=== PATIENT | male | born 1970 | race Caucasian/White ===

== ENCOUNTER 2021-03-12 18:17 | Emergency (ER) | payer OTHER, SELFPAY ==
[2021-03-12] VITALS (24 sets, daily range): BP systolic 107–151; BP diastolic 67–104; PULSE 57–66; RESP 16; TEMP 36.5–36.8; O2SAT 94–99
--- NOTE | 2021-03-12 18:30 | DI.RAD_ITS ---
Exam(s) XR PORTABLE CHEST AP EXAM: XR PORTABLE CHEST AP CLINICAL HISTORY: SOB, CP TECHNIQUE: 2D digital imaging was performed of the chest. One image was obtained. An AP view was ob tained. COMPARISON: No exams were available for comparison FINDINGS: MEDIASTINUM: Normal. HEART: Normal. PULMONARY VASCULATURE: Normal. LUNGS: Clear. PLEURAL SPACE: No pleural effusion or pneumothorax. BONE:Within normal limits for the patient's age. OTHER FINDINGS:Normal. IMPRESSION: No acute pulmonary findings. DATA REPOSITORY: RADIATION DOSE DELIVERED:
--- NOTE | 2021-03-12 18:30 | RT.EKG_ITS ---
APPROVED REPORT Exam: Resting ECG Reason for Exam: PUI Patient Location: E HR:61 bpm ECG Measurements Heart Rate 61 AXIS DC 150 P 60 QRSd 99 QRS -17 QT 399 T 8 QTc 401 Conclusion Sinus rhythm...normal P axis, V-rate 60- 99 Probable left atrial enlargement...P >50mS, <-0.10mV V1 Consider anterior infarct...Q >30mS in V2-V5
--- NOTE | 2021-03-12 19:00 | ED.GENADUL_ITS ---
Discharge Plan Disposition Patient Disposition: HOME Condition: Stable Discharge Details Clinical Impression: Cough, Chest pain Primary Care Provider: Gracie Callahan ED Provider: Jerica Rainey Home Meds and New Rx's Prescriptions: Continued omeprazole 20 MG tablet,delayed release (DR/EC) 20 mg PO DAILY RF: 0 Discharge Instructions Instructions: Chest Pain (ED), Acute Cough (ED) Additional Instructions: Your Covid test is negative here today. Your imaging and labs are reassuring. I am concerned still that you may have COVID-19. Please return to the testing tent in the next 4 days for repeat testing. To set up appointment please call [phone]. Please continue to encourage hyrdation. Tylenol and/or Ibuprofen as needed for discomfort. Please follow up with primary care in one week for reevaluation. If you develop increased shortness of breath, difficulty breathing, chest pain, inability to stay hydrated or other new/worsening symptoms please seek care urgently once again. Please continue to quarantine. Referrals: Lucia Jarrell [ NON-[facility] STAFF PHYSICIAN] - Discharge Data Discharge Date/Time-TO BE ENTERED AT DEPARTURE: 03/12/21 22:58 Medical Decision Making Patient is a pleasant 51-year-old male presenting today with chief complaint of chest pain, shortness of breath, cough, loss of sense of taste. He states he began having rhinorrhea, congestion, body ache 2 days ago. States that he felt like he was improving this morning and attempted to go to work. States that he does have a very physically demanding job. Typically he reports he is able to exert himself without difficulty. However, he walked up a hill today and developed shortness of breath and substernal chest pain. Denies any personal or familial or personal cardiac history. Reports that he has had some fever/chills. Reports that he had loose bowel movements this morning. Denies a ny abdominal pain. No nausea or vomiting. No change in urinary habits. On exam He Appears Nontoxic. He Is Slightly Hypertensive. Vital Signs Otherwise Stable. Is Not Previously Respiratory Distress. Lungs Are Clear. Normal Cardiac Exam. No Lower Extremity Edema or Calf Tenderness. Abdomen Is Benign. Patient did have a rapid Covid test earlier today which was negative. However, his symptoms are quite consistent with Covid, will retest. I did consider ACS and will obtain ECG as well as troponin. Patient was fairly immobile all weekend. As I am concerned for COVID-19 and hypercoagulability, I do feel that D-dimer to evaluate further for PE would be appropriate. He is hemodynamically stable. No radiation of pain in her description suggest dissection, pneumothorax. EKG was obtained and reviewed by Dr. Coughlin. Patient is in a sinus rhythm with a rate of 61. Probable left atrial enlargement. He advises no acute changes to suggest ischemic etiology. CXR reviewed by radiologist: FINDINGS: Lungs: Unremarkable. No consolidation. Pleural spaces: Unremarkable. No pleural effusion. No pneumothorax. Heart/Mediastinum: Unremarkable. No cardiomegaly. Bones/joints: Unremarkable. IMPRESSION: No acute findings. Exam labs reviewed. No leukocytosis. Stable H&H. D-dimer within normal limits. CMP without significant abnormality. BUN slightly elevated but otherwise normal. Initial troponin is less than 0.05. His symptoms to have increased today complained of opponent. Again, patient's history is more concerning with infectious etiology particularly with the exertional component of his symptoms, I do feel that repeat troponin is appropriate. Repeat troponin remains less than 0.05. Patient's COVID-19 testing is negative. Patient I discussed disposition. His symptoms are so classic for COVID-19, particularly the loss of taste and smell, that I do feel that repeat testing a few days would be appropriate. I did encourage that he continue to quarantine. Encourage supportive care. I did advise follow-up with primary care for reevaluation in the next week. Return precautions were discussed. All the questions and concerns were addressed and he is agreement this plan. [facility] General Mode of arrival: ambulatory . Date/Time Provider Initiated Documentation: 03/12/21 18:23 . Limitations to Documentation: no limitations . Information obtained by: patient and RN notes reviewed . History of Present Illness 51 year old M presents to the emergency department with the chief complaint of chest pain, cough, SOB,loss of taste , described as moderate, with intensity rated at 4. Quality is described as burning, and is localized to the chest. Patient reports no radiation. Patient started experiencing this hour(s) and it has been intermittent and now resolved. Rest improves symptom(s), Movement worsens symptoms . Patient notes chest pain, cough, fever/chills and shortness of breath; denies nausea/vomiting and syncope. Patient did receive the following treatments prior to arrival, none Related Data Home Medications Medication Instructions Recorded Confirmed omeprazole 20 mg PO DAILY 12/14/16 12/14/16 Allergies Allergy/AdvReac Type Severity Reaction Status Date / Time onion Allergy Severe Anaphylaxsi Unverified 12/14/16 19:27 s gluten AdvReac Unknown Unverified 12/14/16 19:27 General Stated Complaint: RespSymp MARIPOSA: 3 Review of Systems Constitutional Constitutional: Reports as per HPI, Reports chills, Reports fever(s) and Denies headache(s) ENT Ears, Nose, Mouth, and Throat: Denies dizziness and Denies headache(s) Cardiovascular Cardiovascular: Reports as per HPI, Reports chest pain, Reports chest pain with activity, Denies leg edema, Reports dyspnea and Reports dyspnea on exertion Respiratory Respiratory: Reports as per HPI, Denies chest congestion, Reports cough, Denies hemoptysis, Reports pain with cough, Reports dyspnea, Reports dyspnea on exertion and Denies wheezing Gastrointestinal Gastrointestinal: Reports as per HPI, Denies abdominal pain, Reports loose stools (this AM, none later today), Denies nausea and Denies vomiting Genitourinary Genitourinary: Denies system reviewed and no additional complaints, except as documented (denies change in urinary habits) Musculoskeletal Musculoskeletal: Reports as per HPI and Denies back pain Integumentary/Breasts Skin/Breast: Reports as per HPI and Denies rash Neurologic Neurologic: Reports as per HPI, Denies dizziness and Denies headache(s) Allergic/Immunologic Allergic/Immunologic: Denies wheezing PFSH Social History Smoking/Tobacco Use Status: Never Smoking risk assessment performed?: Yes Alcohol Intake: never Drug use: Never Substance use type: does not use Do you feel safe at home: Yes Do you feel safe in your relationship?: Yes Exam Const General: cooperative, healthy appearing, comfortable, no acute distress and well developed Nutritional Appearance: average body habitus and well nourished Orientation: alert, awake and oriented x3 HENMT Head: normal to inspection Ears: hearing grossly normal bilaterally Mouth: moist mucous membranes Chest Chest: normal inspection of the chest, normal palpation of entire chest wall and no crepitus Resp Effort & Inspection: normal respiratory effort, able to speak in complete sentences and no respiratory distress Auscultation: clear to auscultation bilaterally, no rales, no rhonchi and no wheezes Cardio Rate: regular rate Rhythm: regular rhythm Heart Sounds: S1 normal and S2 normal GI Inspection: normal to inspection, no edema and non-distended Palpation: soft, no hepatosplenomegaly, not firm, no guarding, not rigid and nontender Auscultation: normal bowel sounds Skin General skin exam: no rashes or lesions noted Trauma: no lacerations or abrasions Neuro General: patient alert, patient awake and patient oriented x3 Cognition: normal cognition Speech: speech normal Gait: normal gait Extrem General: normal to inspection, capillary refill normal, no pedal edema, no calf tenderness, normal gait and other (2+ distal pulses) Psych Appearance: grossly normal and well kempt Mental Status: mental status grossly normal Speech and Movement: speech and movement normal Course Vital Signs Vital signs: Vital Signs Temperature 36.8 C 03/12/21 18:21 Pulse 66 03/12/21 18:21 Respiratory Rate 16 03/12/21 18:21 Blood Pressure 151/104 H 03/12/21 18:21 Pulse Oximetry 99 03/12/21 18:21 Temperature 36.8 C 03/12/21 18:21 Temperature Source Temporal Artery Scan 03/12/21 18:21 Pulse 66 03/12/21 18:21 Respiratory Rate 16 03/12/21 18:21 Blood Pressure 151/104 H 03/12/21 18:21 Blood Pressure Position Sitting 03/12/21 18:21 Pulse Oximetry 99 03/12/21 18:21 Oxygen Delivery Method Room Air 03/12/21 18:21 Oxygen Flow Rate 0 03/12/21 18:21 Pain Level 4 03/12/21 18:21
[2021-03-12 19:09] LABS: Abs Immature Grans 0.03 10^3/uL (0.0-0.06); Absolute Basophil Count 0.04 10^3/uL (0.0-0.2); Absolute Eosinophil Count 0.16 10^3/uL (0.0-0.7); Absolute Lymphocyte Count 1.56 10^3/uL (1.2-3.4); Absolute Neutrophil Count 4.37 10^3/uL (1.2-6.7); Basophils % 0.6; Eosinophils % 2.4; HCT 47.4 % (40.0-50.0); HGB 16.2 g/dL (13.5-17.5); Immature Grans % 0.5; Lymphocytes % 23.4; MCH 29.3 pg (27.0-33.0); MCHC 34.2 % (32.0-36.0); MCV 85.7 fL (80-95); MPV 10.7 fL (8.0-11.0); Monocytes % 7.5; Neutrophils % 65.6; Nucleated RBC 0 %; Platelet Count 191 10^3/uL (130-400); RBC 5.53 10^6/uL (4.36-5.78); RDW 11.9 % (11.8-14.1); RDW-SD 37.9 fL; WBC 6.66 10^3/uL (4.4-10.8)
[2021-03-12 19:26] LABS: ALT 28 U/L (16-63); AST 18 U/L (15-37); Albumin 3.8 g/dL (3.4-5.0); Alkaline Phosphatase 71 U/L (46-116); Anion Gap 6.5 mmol/L (3-11); BUN 25 mg/dL (7-18); Bilirubin, Total 0.3 mg/dL (0.2-1.0); CO2 29.5 mmol/L (21.0-32.0); CREATININE 1.1 mg/dL (0.70-1.30); Calcium 8.7 mg/dL (8.5-10.1); Chloride 108 mmol/L (98-107); Glucose 101 mg/dL (74-106); Potassium 3.9 mmol/L (3.5-5.1); Sodium 144 mmol/L (136-145); Total Protein 7.1 g/dL (6.4-8.2)
[2021-03-12 19:28] LABS: Troponin I < 0.05 ng/mL (<0.06)
[2021-03-12 19:36] LABS: Source Nasal/Nares
--- NOTE | 2021-03-12 19:49 | NUR.NOTE ---
Nursing Note: Patient reported 3 short sharp bursts of pain in his left chest lasting a few seconds. ER Provider was made aware.
--- NOTE | 2021-03-12 20:00 | DI.VRAD_ITS ---
PROCEDURE INFORMATION: Exam: XR Chest Exam date and time: 03/12/2021 6:34 PM Age: 51 years old Clinical indication: Shortness of breath; Patient HX: SOB, cp TECHNIQUE: Imaging protocol: XR of the chest. Views: 1 view. COMPARISON: CT RENAL COLIC WO CONTRAST 12/14/2016 7:49 PM FINDINGS: Lungs: Unremarkable. No consolidation. Pleural spaces: Unremarkable. No pleural effusion. No pneumothorax. Heart/Mediastinum: Unremarkable. No cardiomegaly. Bones/joints: Unremarkable. IMPRESSION: No acute findings. Dictated and Authenticated by: Kenan Porter MD. Ordering:SOUTH Pizano MD
[2021-03-12 20:14] LABS: D-Dimer 249 ng/mlFEU (<500)
[2021-03-12 20:37] LABS: COVID-19 PCR Negative (Negative)
--- NOTE | 2021-03-12 21:15 | RT.EKG_ITS ---
APPROVED REPORT Exam: Resting ECG Reason for Exam: chest pain Patient Location: E HR:63 bpm ECG Measurements Heart Rate 63 AXIS TN 149 P 55 QRSd 98 QRS -7 QT 400 T 5 QTc 405 Conclusion Sinus rhythm...normal P axis, V-rate 60- 99 Atrial premature complexes in couplets...pair SV complexes w/ short R-R Probable left atrial enlargement...P >50mS, <-0.10mV V1
[2021-03-12 22:22] LABS: Troponin I < 0.05 ng/mL (<0.06)
--- NOTE | 2021-03-15 12:10 | NUR.NOTE ---
negative covid result left on message machine.Nursing Note:
== END 2021-03-12 22:58 | disposition home or self-care (01) ==
PROVIDERS: Emergency Provider Physician Assistant; PCP Nurse Practitioner
DX: R05.1 Acute cough (principal); R07.9 Chest pain, unspecified; R06.02 Shortness of breath
CPT/HCPCS: 80053; 87635; 93005; 99284; 71045; 84484; 85025; 85379; 93010; 99283

== ENCOUNTER 2022-06-11 11:20 | Emergency (ER) | payer OTHER, SELFPAY ==
--- NOTE | 2022-06-11 11:15 | RT.EKG_ITS ---
APPROVED REPORT Exam: Resting ECG Reason for Exam: sob Patient Location: E HR:67 bpm ECG Measurements Heart Rate 67 AXIS NE 140 P 72 QRSd 96 QRS -6 QT 377 T 0 QTc 400 Conclusion Sinus rhythm...normal P axis, V-rate 60- 99 Physician: no stemi, inverted t wave in III, unchanged
[2022-06-11 11:25] VITALS: BP 155/88; PULSE 72; RESP 18; TEMP 36.8; O2SAT 97
[2022-06-11 11:26] VITALS: BP 155/88; PULSE 72
--- NOTE | 2022-06-11 11:30 | DI.RAD_ITS ---
Exam(s) XR CHEST 2V PA LATERAL EXAM: XR CHEST 2V PA LATERAL CLINICAL HISTORY: cough, 18 days, r/o pneumonia. TECHNIQUE: 2D digital imaging was performed. COMPARISON: CR,XR XR PORTABLE CHEST AP from 03/12/2021 FINDINGS: 2 views: Heart size is normal. The mediastinum is not widened. Lungs are clear. No infiltrates nor pleural effusions. IMPRESSION: No acute pulmonary findings. DATA REPOSITORY: RADIATION DOSE DELIVERED:
--- NOTE | 2022-06-11 11:30 | DI.RAD_ITS ---
Exam(s) XR THORACIC SPINE COMPLETE EXAM: XR THORACIC SPINE COMPLETE CLINICAL HISTORY: cough, 18 days, thoracic spine pain. TECHNIQUE: 2D digital imaging was performed. COMPARISON: No exams were available for comparison FINDINGS: 3 views No evidence of fracture or listhesis. No significant scoliosis. No disc space narrowing. No wideni ng of the paraspinal lines. No osseous lesions evident in the thoracic vertebral bodies. Incidentally noted is chronic disc space narrowing at C5-6 level IMPRESSION: No significant radiograph findings in the thoracic vertebral bodies. Chronic disc space narrowing incidentally noted at C5-6 level. DATA REPOSITORY: RADIATION DOSE DELIVERED:
--- NOTE | 2022-06-11 11:42 | ED.GENADUL_ITS ---
Discharge Plan Disposition Patient Disposition: Home Condition: Good Discharge Details Clinical Impression: Cough, Back pain Primary Care Provider: Lucia Jarrell ED Provider: Dominick Aguillon Home Meds and New Rx's Prescriptions: New benzonatate 100 mg capsule 100 mg PO TID Qty: 30 0RF No Action omeprazole 20 MG tablet,delayed release (DR/EC) 20 mg PO DAILY Discharge Instructions Instructions: Chronic Cough (ED) Additional Instructions: At this time your chest x-ray shows no evidence of pneumonia, pneumothorax, and the x-rays of your spine showed no evidence of significant fracture or other abnormality. I suspect that there is a chronic irritation from the previous illness that you had that is causing the persistent cough. Please take the steroid inhaler as directed. 2 puffs every 12 hours. Take the Tessalon Perles as directed. These have been sent to your pharmacy on file. If you notice any worsening of your symptoms, or any new symptoms such as vomiting, diarrhea, fever, chills, shortness of breath, chest pain, numbness, weakness, or fainting , please return immediately to the emergency department for reevaluation. Please follow up with your primary care provider as soon as possible for reassessment and reevaluation. As always, it was a pleasure participating in your medical care today. Referrals: Lucia Jarrell [Primary Care Provider] - Medical Decision Making 52-year-old male with a past medical history of reflux, presents today for evaluation for cough and neck and back pain. Patient states that about 18 days ago he developed a cough, congestion, and constitutional symptoms of weakness fatigue fever and chills. That gradually improved over the next week or so, however his cough has persisted. He still admits to mild shortness of breath and some chest heaviness. However additionally he has also developed notable back pain that extends up to his neck at around C7. It is worsened every time he coughs. He was concerned about potential meningitis. He presents today for further evaluation. He denies any current fever. He denies any hemoptysis, vomiting or diarrhea. He states that he has no significant headache at this time. Is neck/back pain is worsened whenever he does cough. It is otherwise improved by nothing. No other complaints at this time. No other modifying factors. He denies any trauma or falls. Physicial exam demonstrates well-appearing male, notably clear lung sounds, stable vital signs. No nuchal rigidity or neck pain whatsoever. Neck pain appears to start at around C7, and then extends down to about T8 or 9. Suspect musculoskeletal component secondary to the coughing. However pneumonia and osseous abnormality is certainly on the differential. Meningitis appears clinically inconsistent with symptomatology. PE is of concern with his prolonged illness, cardiac etiology as well but less likely. Will evaluate for these etiologies, give Tessalon Perle, breathing treatment, monitor closely and reassess 3 PM X-ray results negative for acute process, laboratory work-up shows no white count, bandemia, left shift, elevated dimer, electrolyte abnormality, elevated troponin, elevated proBNP, elevated CRP, or elevated ESR. All testing is normal. COVID/flu/RSV are all negative. After Tessalon Perles patient is feeling improved for the severity of his cough. Chest x-ray and spine x-ray shows some chronic disc base narrowing at C5-C6, no evidence of pneumonia, pneumothorax, or other acute process otherwise. Patient feels well. Patient stable for discharge. We will give Symbicort inhaler for the steroid effect. Will give Tessalon Perles for home use. Suspect a component of persistent airway irritation or reactive airway disease. Symptoms appear clinically inconsistent with pulmonary embolism, dissection, or meningitis. I suspect that the neck/back achiness is musculoskeletal secondary to the coughing component. Patient stable for discharge. Will recommend close follow-up with PCP. He does have an appointment in the next 2 weeks for follow-up already. I have extensively reviewed the treatment plan and discharge instructions with the patient. I have addressed all patient concerns at this time. The patient was made aware of what symptoms to monitor for that would warrant a return to the emergency department. Discussed the plan with the patient, they demonstrate verbal understanding and agreement with our assessment and plan at this time. The documentation in this chart was dictated using [employer] dictation software. Please excuse any dictation errors. FINDINGS: 2 views: Heart size is normal. The mediastinum is not widened. Lungs are clear. No infiltrates nor pleural effusions. IMPRESSION: No acute pulmonary findings. FINDINGS: 3 views No evidence of fracture or listhesis. No significant scoliosis. No disc space narrowing. No widening of the paraspinal lines. No osseous lesions evident in the thoracic vertebral bodies. Incidentally noted is chronic disc space narrowing at C5-6 level IMPRESSION: No significant radiograph findings in the thoracic vertebral bodies. Chronic disc space narrowing incidentally noted at C5-6 level. HPI General Date/Time Provider Initiated Documentation: 06/11/22 11:39 . HPI Narrative: 52-year-old male with a past medical history of reflux, presents today for evaluation for cough and neck and back pain. Patient states that about 18 days ago he developed a cough, congestion, and constitutional symptoms of weakness fatigue fever and chills. That gradually improved over the next week or so, however his cough has persisted. He still admits to mild shortness of breath and some chest heaviness. However additionally he has also developed notable back pain that extends up to his neck at around C7. It is worsened every time he coughs. He was concerned about potential meningitis. He presents today for further evaluation. He denies any current fever. He denies any hemoptysis, vomiting or diarrhea. He states that he has no significant headache at this time. Is neck/back pain is worsened whenever he does cough. It is otherwise improved by nothing. No other complaints at this time. No other modifying factors. He denies any trauma or falls. Related Data Home Medications Medication Instructions Recorded Confirmed omeprazole 20 mg tablet,delayed 20 mg PO DAILY 12/14/16 06/11/22 release benzonatate 100 mg capsule 100 mg PO TID #30 caps 06/11/22 Previous Rx's Medication Instructions Recorded benzonatate 100 mg capsule 100 mg PO TID #30 caps 06/11/22 Allergies Allergy/AdvReac Type Severity Reaction Status Date / Time onion Allergy Severe Anaphylaxsi Unverified 06/11/22 11:29 s gluten AdvReac Unknown Unverified 06/11/22 11:29 General Stated Complaint: Nk/Back Pain MARIPOSA: 3 Review of Systems All systems reviewed & are unremarkable except as noted in HPI and below PFSH All Active Problems (Updated 06/11/22 @ 15:40 by Dominick Aguillon DO) Cough (Acute) Chest pain (Acute) Cough (Acute) Back pain (Acute) Social History Smoking/Tobacco Use Status: Never Smoking risk assessment performed?: Yes Alcohol Intake: never Drug use: Never Substance use type: does not use Do you feel safe at home: Yes Do you feel safe in your relationship?: Yes Exam Narrative Exam Narrative: 1.Const: Well-nourished, Well-developed, appearing stated age 2.Eyes: PERRL, no conjunctival injection, and symmetrical lids. 3.ENT: Atraumatic external nose and ears. Moist MM. Neck: Symmetric, trachea midline, No thyromegaly. 4.CVS: +S1/S2, No murmurs or gallops. Peripheral pulses 2+ and equal in all extremities. Brisk capillary refill in all extremities. 5.RESP: Unlabored respiratory effort. Clear to auscultation bilaterally. No wheezes rales or rhonchi 6.GI: Soft, Nontender/Nondistended, No hepatosplenomegaly. No guarding or rebound. 7.MSK: Normocephalic/Atraumatic, Extremities w/o deformity or ttp No cyanosis or clubbing, Normal movement of all extremities. Patient demonstrates good movement of cervical neck. There is no nuchal rigidity, no nuchal tenderness. Patient is able to flex the neck without any difficulty or significant pain. Negative Kernig's and Brudzinski sign. 8.Skin: Warm, Dry. No rashes or lesions. 9.Neuro: hospice/home health aide II-XII grossly intact. Sensation grossly intact, no focal neurologic deficits. 10.Psych: (AAO) x3. Appropriate mood and affect Course Vital Signs Vital signs: Vital Signs Temperature 36.8 C 06/11/22 11:25 Pulse 72 06/11/22 11:25 Respiratory Rate 18 06/11/22 11:25 Blood Pressure 155/88 H 06/11/22 11:25 Pulse Oximetry 97 06/11/22 11:25 Temperature 36.8 C 06/11/22 11:25 Temperature Source Skin 06/11/22 11:25 Pulse 72 06/11/22 11:25 Respiratory Rate 18 06/11/22 11:25 Respiratory Effort 06/11/22 11:35 Blood Pressure 155/88 H 06/11/22 11:25 Blood Pressure Position Sitting 06/11/22 11:25 Pulse Oximetry 97 06/11/22 11:25 Oxygen Delivery Method Room Air 06/11/22 11:25 Oxygen Flow Rate 0 06/11/22 11:25 Pain Level 7 06/11/22 11:40
[2022-06-11 11:56] VITALS: O2SAT 99
[2022-06-11] MEDS: Benzonatate 100 MG CAP 200 MG PO (11:59)
[2022-06-11 12:03] LABS: Abs Immature Grans 0.04 10^3/uL (0.0-0.06); Absolute Basophil Count 0.04 10^3/uL (0.0-0.2); Absolute Eosinophil Count 0.13 10^3/uL (0.0-0.7); Absolute Lymphocyte Count 1.43 10^3/uL (1.2-3.4); Absolute Monocyte Count 0.56 10^3/uL (0.1-0.8); Absolute Neutrophil Count 5.24 10^3/uL (1.2-6.7); Basophils % 0.5; Eosinophils % 1.7; HCT 47.5 % (40.0-50.0); HGB 16.4 g/dL (13.5-17.5); Immature Grans % 0.5; Lymphocytes % 19.2; MCHC 34.5 % (32.0-36.0); MCV 87 fL (80-95); MPV 10.7 fL (8.0-11.0); Monocytes % 7.5; Neutrophils % 70.6; Platelet Count 220 10^3/uL (130-400); RBC 5.46 10^6/uL (4.36-5.78); RDW 12.5 % (11.8-14.1); WBC 7.44 10^3/uL (4.4-10.8)
[2022-06-11 12:10] LABS: ESR 3 mm/hr (0-20)
[2022-06-11 12:25] LABS: ALT 58 U/L (16-63); AST 24 U/L (15-37); Albumin 3.9 g/dL (3.4-5.0); Alkaline Phosphatase 64 U/L (46-116); Anion Gap 6.8 mmol/L (3-11); BUN 34 mg/dL (7-18); Bilirubin, Total 0.4 mg/dL (0.2-1.0); CO2 30.2 mmol/L (21.0-32.0); Calcium 9.5 mg/dL (8.5-10.1); Chloride 104 mmol/L (98-107); Glucose 96 mg/dL (74-106); Potassium 4.4 mmol/L (3.5-5.1); Sodium 141 mmol/L (136-145); Total Protein 7.6 g/dL (6.4-8.2); Troponin I < 50 ng/L (<or=60)
[2022-06-11 12:47] LABS: C-Reactive Protein < 0.05 mg/dL (0.0-0.3)
[2022-06-11 12:51] LABS: COVID-19 PCR Negative (Negative); Influenza A PCR Negative (Negative); Influenza B PCR Negative (Negative); RSV PCR Negative (Negative)
[2022-06-11 12:52] LABS: D-Dimer 229 ng/mlFEU (<500)
[2022-06-11 12:53] LABS: Source Nasopharynx
[2022-06-11 12:54] LABS: NT-proBNP 12 pg/mL (<300)
[2022-06-11] MEDS: Budesonide/Formoterol 160/4.5 6 GM 60 PUFF INH IH (14:20)
[2022-06-11 14:41] VITALS: BP 148/98; PULSE 67; RESP 18; TEMP 36.6; O2SAT 98
== END 2022-06-11 15:40 | disposition home or self-care (01) ==
PROVIDERS: Emergency Provider Student in an Organized Health Care Education/Training Program; PCP General Practice
DX: R05.9 Cough, unspecified (principal); M54.9 Dorsalgia, unspecified; R06.02 Shortness of breath; R07.89 Other chest pain; Z20.822 Contact with and (suspected) exposure to COVID-19
CPT/HCPCS: 36415; 80053; 85652; 87637; 93005; 94640; 99283; 71046; 72072; 83880; 84484; 85025; 85379; 86140; 93010; 99285

== ENCOUNTER 2023-01-14 12:47 | Outpatient (CLI) | payer OTHER, SELFPAY ==
[2023-01-16 14:11] LABS: HLA-B27 Result Negative
== END 2023-01-17 12:48 | disposition home or self-care (01) ==
LOC: LBO 01-21 13:12
PROVIDERS: PCP General Practice; Visit Provider Student in an Organized Health Care Education/Training Program
DX: M25.59 Pain in other specified joint (principal)
CPT/HCPCS: 36415; 86812

== ENCOUNTER → 2023-01-17 12:46 | Outpatient (CLI) | payer OTHER, SELFPAY ==
--- NOTE | 2023-01-14 | DI.RAD_ITS ---
Exam(s) XR SACROILIAC JOINTS EXAM: XR SACROILIAC JOINTS CLINICAL HISTORY: PAIN IN JOINTS M25.50 PAIN LOWER BACK-CHRONIC, EVAL FOR INFLAMMATION. TECHNIQUE: 2D digital imaging was performed. COMPARISON: No exams were available for comparison FINDINGS: 3 views No evidence of pelvic nor sacral fracture. SI joints appear unremarkable. No radiographic evidence of sacroiliitis. No ankylosis. Visualized hips appear unremarkable. IMPRESSION: No significant radiographic findings in the sacroiliac joints. DATA REPOSITORY: RADIATION DOSE DELIVERED:
== END ==
PROVIDERS: PCP General Practice
DX: M54.50 Low back pain, unspecified (principal)
CPT/HCPCS: 72202

== ENCOUNTER 2023-05-29 20:43 | Outpatient (REF) | payer OTHER, SELFPAY ==
[2023-05-29 20:18] LABS: Source Nasal/Nares
[2023-05-29 21:02] LABS: COVID-19 PCR Negative (Negative)
== END 2023-05-29 20:44 | disposition home or self-care (01) ==
LOC: LBN 20:43
PROVIDERS: PCP General Practice; Visit Provider Physician Assistant Medical
DX: R05.8 Other specified cough (principal); Z20.822 Contact with and (suspected) exposure to COVID-19
CPT/HCPCS: 87635

== ENCOUNTER 2023-06-11 12:53 | Emergency (ER) | payer OTHER, SELFPAY ==
[2023-06-11 13:15] VITALS: BP 162/104; PULSE 87; RESP 16; TEMP 37.5; O2SAT 98
--- NOTE | 2023-06-11 15:13 | ED.GENADUL_ITS ---
HPI General Date/Time Provider Initiated Documentation: 06/11/23 15:04 . HPI Narrative: Patient is a 53-year-old male who comes to the emergency department stating that he has been having progressive joint pain for the last 2 years which has been exacerbated in the last 6 months. He was referred to a display fabrication supervisor and a documentation supervisor who thought he might be having psoriatic arthritis and was placed on methylprednisolone as well as methotrexate. He states that he has not improved significantly and today comes with pain in his left calf and left thigh and right thigh. He states that he has a lot of pain in his pelvic girdle. Reports that he had a course of antibiotics a week ago for he had bronchitis and he stopped the methotrexate but still states that methotrexate is generally has not improved his symptoms. Denies any fever denies any chills denies any leg swelling states that sometimes he gets headaches especially in his scalp, and states that he had a LEMUEL antibody done 2 years ago which test was positive at that time he had mild symptoms. Related Data Home Medications Medication Instructions Recorded Confirmed omeprazole 20 mg tablet,delayed 20 mg PO DAILY 12/14/16 06/11/23 release methotrexate sodium 2.5 mg tablet mg 06/11/23 methylprednisolone 8 mg tablet mg 06/11/23 prednisone 20 mg tablet 60 mg (3 x 20 mg) PO DAILY 4 days 06/11/23 #12 tabs tramadol 50 mg tablet 50 mg PO DAILY PRN pain #10 tabs 06/11/23 Previous Rx's Medication Instructions Recorded prednisone 20 mg tablet 60 mg (3 x 20 mg) PO DAILY 4 days 06/11/23 #12 tabs tramadol 50 mg tablet 50 mg PO DAILY PRN pain #10 tabs 06/11/23 Allergies Allergy/AdvReac Type Severity Reaction Status Date / Time onion Allergy Severe Anaphylaxsi Unverified 06/11/23 13:13 s gluten AdvReac Unknown Unverified 06/11/23 13:13 General Stated Complaint: GenMedical MARIPOSA: 3 Review of Systems Narrative: Review of Systems: Constitutional: No fevers, chills, sweats Eye: No recent visual problems ENT: No ear pain, nasal congestion, sore throat Respiratory: No shortness of breath, cough Cardiovascular: No Chest pain, palpitations, syncope Gastrointestinal: No nausea, vomiting, diarrhea Genitourinary: No hematuria Maurice/Lymph: Negative for bruising tendency, swollen lymph glands Endocrine: Negative for excessive thirst, excessive hunger Musculoskeletal: No back pain, neck pain, joint pain, muscle pain, decreased range of motion Integumentary: No rash, pruritus, abrasions Neurologic: Alert & oriented X 4 Psychiatric: No anxiety, depression PFSH All Active Problems (Updated 06/11/23 @ 16:36 by Gulshan Greene MD) PMR (polymyalgia rheumatica) (Acute) Chest pain (Acute) Cough (Acute) Social History Smoking/Tobacco Use Status: Never Smoking risk assessment performed?: Yes Alcohol Intake: never Drug use: Never Substance use type: does not use Do you feel safe at home: Yes Do you feel safe in your relationship?: Yes Exam Narrative Exam Narrative: Exam; vitals signs as reported above normal Constitutional; In no acute distress, afebrile General: cooperative, healthy appearing, comfortable and no acute distress HEENT: Head: normal to inspection, no palpable skull fracture and normocephalic atraumatic Eyes: : appearance normal, both eyes and all related structures EOM intact bilaterally Pupils: PERRL : conjunctiva normal Direct ophthalmoscopy: normal light reflex, normal conjunctiva, normal visual acuity Ears: Normal TM, normal external canal Nose: normal no rhinorreha Neck no JVD, supple non tender Neck: normal visual inspection, full ROM and no lymphadenopathy Chest: normal inspection of the chest Respiratory : normal respiratory effort and able to speak in complete sentences no wheezing no rales Cardio Rate: regular rate, rhythm: regular rhythm normal heart sounds S1 and S2 no murmurs, gallops, or rubs GI : normal to inspection, normal bowel sounds, soft, non tender, non distended, no organomegaly Back/Spine/ no CVA tenderness Thoracic/Lumbar Spine: no tenderness or deformities Skin no rashes or lesions Neuro: patient alert oriented x 4 and no meningeal signs, Cranial Nerves: CN's II-XI intact bilaterally, Cognition: normal cognition, Speech: speech normal, Gait: normal gait, Depp tendon reflexes normal 2+ muscle strength 5/5 bilaterally Extremities, no edema, full range of motion, normal strength mild tenderness to the proximal left thigh and the distal right calf Course Vital Signs Vital signs: Vital Signs Temperature 37.5 C 06/11/23 13:15 Pulse 87 06/11/23 13:15 Respiratory Rate 16 06/11/23 13:15 Blood Pressure 162/104 H 06/11/23 13:15 Pulse Oximetry 98 06/11/23 13:15 Temperature 37.5 C 06/11/23 13:15 Temperature Source Temporal Artery Scan 06/11/23 13:15 Pulse 87 06/11/23 13:15 Respiratory Rate 16 06/11/23 13:15 Respiratory Effort Normal, Non-Labored 06/11/23 14:47 Respiratory Depth Normal 06/11/23 14:47 Respiratory Pattern Irregular 06/11/23 14:47 Blood Pressure 162/104 H 06/11/23 13:15 Blood Pressure Position Sitting 06/11/23 13:15 Pulse Oximetry 98 06/11/23 13:15 Oxygen Delivery Method Room Air 06/11/23 13:15 Oxygen Flow Rate 0 06/11/23 13:15 Pain Level 3 06/11/23 13:15 Comment high at 10/10 when calf pain flair 06/11/23 13:15 Medical Decision Making MDM: Summary: Patient presents to the emergency department complaining of exacerbation of bradycardia told him had his psoriatic arthritis but he states he does not have pain in his joints that his pain is in his thighs and today mostly on the left thigh and the right calf he also states that he has occasional scalp pain and headaches and pain in his shoulders. On the differential and not ruling out psoriatic arthritis I also feel that this is more polymyalgia rheumatica. He states he takes 4 mg of methylprednisolone daily and methotrexate. Stopped methotrexate due to the upper respiratory infection last week. He initiated the methotrexate but states that the methotrexate is really not helped his symptoms. Today in the emergency department he had some labs done which showed mild hypokalemia not to the extent to cause muscle pain which is unilateral also is sed rate was normal but the C-reactive protein was positive. I have sent some more neurological tests and have advised him that he is to see his documentation supervisor soon as possible and he states he will call him tomorrow. He opted to take a booster dose of prednisone for 4 days and I will give him some tramadol for pain if needed. I performed [id number] ultrasound of the muscles of his calf and his thigh shows no DVT no arterial insufficiency good circulation but he has got some edema in the proximal calf muscles and no evidence of a Nascimento's cyst. Data Review Analysis All the data on this patient was reviewed by me including laboratory and imaging studies as well as bedside studies performed by me Independent review of Studies Imaging Lab: Risk Stratification: Differential Diagnosis: 1. Polymyalgia rheumatica 2.polymyositis or dermatomyositis 3. Psoriatic arthritis 4. Tendinitis 5. Consultants: Shared disposition: Patient is aware and he will follow-up with his documentation supervisor tomorrow advised him if he is unimproved to return to the emergency department for reevaluation Impression: Medical Records Medical records reviewed: Yes I reviewed the patient's medical records. Quality:[facility] Health Related Social Needs: 2 No Data to Display Discharge Plan Disposition Patient Disposition: Home Condition: Stable Discharge Details Clinical Impression: PMR (polymyalgia rheumatica) Primary Care Provider: Lucia Jarrell ED Provider: Gulshan Greene Meds and New Rx's Prescriptions: New prednisone 20 mg tablet 60 mg PO DAILY 4 Days Qty: 12 0RF tramadol 50 mg tablet 50 mg PO DAILY PRN (Reason: pain) Qty: 10 0RF Continued methotrexate sodium 2.5 mg tablet Patient Comments: TAKE 6 TABLETS BY MOUTH ONCE WEEKLY omeprazole 20 MG tablet,delayed release (DR/EC) 20 mg PO DAILY Held methylprednisolone 8 mg tablet Hold Instructions: Resume on 06/20/23. wait until rheumoatologist Patient Comments: TAKE 1 & 1/2 TABLETS BY MOUTH ONCE DAILY X 7 DAYS, THEN 1 TABLET DAILY X 7 DAYS, THEN 0.5 TABLET DAILY X 7 DAYS Discharge Instructions Referrals: Lucia Jarrell [Primary Care Provider] - 2 days (call tomorrow) Discharge Data Discharge Physician: Gulshan Greene POCUS Exam (ED) Limited Soft Tissue Exam DATE OF EXAM: 06/11/23 TIME OF EXAM: 16:39 PROVIDER THAT PERFORMED THE STUDY: Gulshan Greene IS THIS A REPEAT EXAM DURING THIS ENCOUNTER: No LOCATION OF EXAM: Lower extremity/right REASON FOR EXAM: Pain Exam Complete and Upper extremity/right REASON FOR EXAM: Pain Exam Complete DIFFERENTIAL DIAGNOSES: DVT, arterial insufficiency INCIDENTAL FINDINGS: edema of calf muscle fibers Vital Signs & Lab Results Vital Signs Most Recent Vital Signs: Most Recent Vital Signs Temp Pulse Resp BP Pulse Ox 37.5 C 87 16 162/104 H 98 06/11/23 13:15 06/11/23 13:15 06/11/23 13:15 06/11/23 13:15 06/11/23 13:15 Point of Care Results Nursing Point of Care Results: 2 No Data to Display Lab Results 06/11/23 15:30 06/11/23 15:30 Blood Type / Crossmatch: 2 No Data to Display Complete Blood Count: 2 White Blood Count 8.68 10^3/uL (4.4-10.8) 06/11/23 15:30 Red Blood Count 5.10 10^6/uL (4.36-5.78) 06/11/23 15:30 Hemoglobin 15.3 g/dL (13.5-17.5) 06/11/23 15:30 Hematocrit 44.6 % (40.0-50.0) 06/11/23 15:30 Platelet Count 198 10^3/uL (130-400) 06/11/23 15:30 Complete Metabolic Panel: 2 Sodium 143 mmol/L (136-145) 06/11/23 15:30 Potassium 3.3 mmol/L (3.5-5.1) L 06/11/23 15:30 Chloride 105 mmol/L (98-107) 06/11/23 15:30 Carbon Dioxide 27.3 mmol/L (21.0-32.0) 06/11/23 15:30 BUN 27 mg/dL (7-18) H 06/11/23 15:30 Creatinine 0.9 mg/dL (0.70-1.30) 06/11/23 15:30 Est GFR (CKD-EPI 2020) 101.49 (mL/min/1.73m2) 06/11/23 15:30 Calcium 8.9 mg/dL (8.5-10.1) 06/11/23 15:30 Albumin 3.2 g/dL (3.4-5.0) L 06/11/23 15:30 Glucose 118 mg/dL (74-106) H 06/11/23 15:30 C-Reactive Protein 0.41 mg/dL (0.0-0.3) H 06/11/23 15:30 Liver Function Panel: 2 Alanine Aminotransferase (ALT/SGPT) 21 U/L (16-63) 06/11/23 15: 30 Aspartate Amino Transf (AST/SGOT) 12 U/L (15-37) L 06/11/23 15: 30 Coagulation Panel: 2 No Data to Display Cardiac Panel: 2 No Data to Display Arterial Blood Gas: 2 No Data to Display Venous Blood Gas: 2 No Data to Display Pancreas Panel: 2 No Data to Display Thyroid Panel: 2 No Data to Display Infectious Disease: 2 Coronavirus (COVID-19)(PCR) Negative (Negative) 05/29/23 19:51 Coronavirus 2019 Source Nasal/Nares 05/29/23 19:51 Blood Cultures: 2 No Data to Display Toxicology Panel: 2 No Data to Display
[2023-06-11 15:52] LABS: Abs Immature Grans 0.05 10^3/uL (0.0-0.06); Absolute Basophil Count 0.04 10^3/uL (0.0-0.2); Absolute Eosinophil Count 0.12 10^3/uL (0.0-0.7); Absolute Monocyte Count 0.62 10^3/uL (0.1-0.8); Absolute Neutrophil Count 5.95 10^3/uL (1.2-6.7); Basophils % 0.5; Eosinophils % 1.4; HCT 44.6 % (40.0-50.0); HGB 15.3 g/dL (13.5-17.5); Immature Grans % 0.6; Lymphocytes % 21.9; MCHC 34.3 % (32.0-36.0); MCV 88 fL (80-95); Monocytes % 7.1; Neutrophils % 68.5; Platelet Count 198 10^3/uL (130-400); RDW 13.4 % (11.8-14.1); RDW-SD 42.7 fL; WBC 8.68 10^3/uL (4.4-10.8)
[2023-06-11 15:54] LABS: ESR 10 mm/hr (0-20)
[2023-06-11 16:10] LABS: ALT 21 U/L (16-63); AST 12 U/L (15-37); Albumin 3.2 g/dL (3.4-5.0); Alkaline Phosphatase 55 U/L (46-116); Anion Gap 10.7 mmol/L (3-11); BUN 27 mg/dL (7-18); Bilirubin, Total 0.4 mg/dL (0.2-1.0); C-Reactive Protein 0.41 mg/dL (0.0-0.3); CO2 27.3 mmol/L (21.0-32.0); CREATININE 0.9 mg/dL (0.70-1.30); Calcium 8.9 mg/dL (8.5-10.1); Chloride 105 mmol/L (98-107); Estimated GFR 101.49 (mL/min/1.73m2); Glucose 118 mg/dL (74-106); Potassium 3.3 mmol/L (3.5-5.1); Sodium 143 mmol/L (136-145); Total Protein 6.8 g/dL (6.4-8.2)
[2023-06-11 22:24] LABS: Rheumatoid Factor <8.6 IU/mL (<12.0)
[2023-06-12 13:23] LABS: ANCA Interpretation Negative (Negative)
[2023-06-12 13:25] LABS: ANA Interpretation Positive (Negative)
[2023-06-12 17:46] LABS: Scl 70 Antibodies, IgG <0.2 U
[2023-06-12 17:55] LABS: Myeloperoxidase Ab IgG <0.2 U; Proteinase 3 Ab (PR3) <0.2 U
[2023-06-13 12:48] LABS: Antistrep-O Titer <20 IU/mL (0 - 530)
== END 2023-06-11 16:43 | disposition home or self-care (01) ==
PROVIDERS: Emergency Provider Emergency Medicine Emergency Medical Services; PCP General Practice
DX: M35.3 Polymyalgia rheumatica (principal); R00.1 Bradycardia, unspecified; Z79.631 Long term (current) use of antimetabolite agent
CPT/HCPCS: 76882; 80053; 85652; 86255; 99284; 83516; 85025; 86038; 86060; 86140; 86235; 86431

== ENCOUNTER 2023-08-28 20:34 | Outpatient (REF) | payer BC, SELFPAY ==
[2023-08-30 13:51] LABS: HSV 1 DNA Result Negative (Negative); HSV 2 DNA Result Negative (Negative); Varicella Zoster DNA Result Positive ((See Note))
== END 2023-08-28 20:35 | disposition home or self-care (01) ==
LOC: LBN 20:34
PROVIDERS: PCP General Practice; Visit Provider Physician Assistant Medical
DX: L98.8 Other specified disorders of the skin and subcutaneous tissue (principal)
CPT/HCPCS: 87529; 87798

== ENCOUNTER 2023-11-06 12:08 | Outpatient (CLI) | payer BC, SELFPAY ==
[2023-11-06 11:47] LABS: ESR 1 mm/hr (0-20)
[2023-11-06 12:16] LABS: Creatine Kinase 76 U/L (39-308)
[2023-11-06 12:17] LABS: C-Reactive Protein < 0.50 mg/dL (<or=0.5)
[2023-11-07 12:40] LABS: Lyme Ab w Rflx to Lyme Confirm Negative (Negative)
== END 2023-11-06 12:09 | disposition home or self-care (01) ==
LOC: LBO 12:08
PROVIDERS: PCP General Practice; Visit Provider Internal Medicine
DX: G89.4 Chronic pain syndrome
CPT/HCPCS: 36415; 82550; 85652; 86140; 86618

== ENCOUNTER 2024-09-21 15:02 | Outpatient (CLI) | payer BC, SELFPAY ==
[2024-09-21 14:40] LABS: Abs Immature Grans 0.02 10^3/uL (0.0-0.06); Absolute Basophil Count 0.04 10^3/uL (0.0-0.2); Absolute Eosinophil Count 0.11 10^3/uL (0.0-0.7); Absolute Lymphocyte Count 1.81 10^3/uL (1.2-3.4); Absolute Monocyte Count 0.44 10^3/uL (0.1-0.8); Absolute Neutrophil Count 4.51 10^3/uL (1.2-6.7); Basophils % 0.6 %; Eosinophils % 1.6 %; HCT 47.1 % (40.0-50.0); HGB 16.6 g/dL (13.5-17.5); Immature Grans % 0.3 %; Lymphocytes % 26.1 %; MCH 29.9 pg (27.0-33.0); MCHC 35.2 % (32.0-36.0); MCV 85 fL (80-95); MPV 10.8 fL (8.0-11.0); Monocytes % 6.3 %; Neutrophils % 65.1 %; Platelet Count 181 10^3/uL (130-400); RBC 5.55 10^6/uL (4.36-5.78); RDW 12.7 % (11.8-14.1); RDW-SD 39.1 fL; WBC 6.93 10^3/uL (4.4-10.8)
[2024-09-21 14:47] LABS: ESR < 1 mm/hr (0-20)
[2024-09-21 15:32] LABS: ALT 37 U/L (16-63); AST 22 U/L (15-37); Albumin 3.8 g/dL (3.4-5.0); Alkaline Phosphatase 79 U/L (46-116); Anion Gap 7.1 mmol/L (3-11); BUN 21 mg/dL (7-18); Bilirubin, Total 0.4 mg/dL (0.2-1.0); CO2 30.9 mmol/L (21.0-32.0); Calcium 8.7 mg/dL (8.5-10.1); Chloride 108 mmol/L (98-107); Estimated GFR 88.88 (mL/min/1.73m2); Glucose 101 mg/dL (74-106); Potassium 4.2 mmol/L (3.5-5.1); Sodium 146 mmol/L (136-145); Total Protein 7.2 g/dL (6.4-8.2)
[2024-09-21 16:06] LABS: C-Reactive Protein < 0.50 mg/dL (<or=0.5)
[2024-09-21 21:51] LABS: Rheumatoid Factor <8.6 IU/mL (<12.0)
[2024-09-22 10:19] LABS: Cyclic Citrullinated Peptide <2.5 U/mL (<5.0)
== END 2024-09-21 15:03 | disposition home or self-care (01) ==
LOC: LBO 15:02
PROVIDERS: PCP General Practice; Visit Provider Student in an Organized Health Care Education/Training Program
DX: M25.551 Pain in right hip (principal); M25.552 Pain in left hip; M12.30 Palindromic rheumatism, unspecified site
CPT/HCPCS: 36415; 80053; 85652; 86200; 85025; 86140; 86431

== ENCOUNTER 2024-12-19 19:53 | Emergency (ER) | payer BC, SELFPAY ==
[2024-12-19] VITALS (16 sets, daily range): BP systolic 137–155; BP diastolic 92–100; PULSE 67–82; RESP 14–24; TEMP 37.2; O2SAT 92–96
--- NOTE | 2024-12-19 20:30 | DI.CT_ITS ---
Exam(s) CT HEAD WO EXAM: CT HEAD WO CLINICAL HISTORY: headache. TECHNIQUE: Imaging Protocol: Axial computed tomography images with coronal and sagittal reformatted images were created and reviewed COMPARISON: No exams were available for comparison FINDINGS: There are no skull fractures. There is no fluid in the visualized paranasal sinuses. There is no evidence of intracranial hemorrhage, mass effect, or shift of midline structures. There are no extra-axial fluid collections. The ventricles are not enlarged or shifted and there is no blood within the ventricular system nor within the basal cisterns. IMPRESSION: No acute intracranial findings on this noninfused CT scan of the brain. RADIATION DOSE DELIVERED: 911mGy.cm Total DLP DATA REPOSITORY: All CT scans at this facility are submitted to the National Radiology Data Registry (NRDR) Dose Index Registry (DIR) with the [employer] ([employer]). RADIATION OPTIMIZATION: All CT scans at this facility use at least one of these dose optimization techniques: automated exposure control; mA and/or kV adjustment per patient size (includes targeted exams where dose is matched to clinical indication); or iterative reconstruction.
[2024-12-19] MEDS: ACETAMINOPHEN 1,000 MG/100 ML BTL 400 MG IVPB (21:03)
[2024-12-19] MEDS: Dexamethasone 10 MG/ML VIAL IVP (21:03)
[2024-12-19] MEDS: SUMAtriptan 25 MG TAB PO (21:04)
[2024-12-19] MEDS: Normal Saline 1,000 ML 1000 ML IV (21:04)
[2024-12-19] MEDS: Prochlorperazine 10 MG/2 ML VIAL IVP (21:04)
[2024-12-19 21:08] LABS: Abs Immature Grans 0.01 10^3/uL (0.0-0.06); HCT 46.0 % (40.0-50.0); HGB 15.8 g/dL (13.5-17.5); Immature Grans % 0.2 %; MCH 28.5 pg (27.0-33.0); MCHC 34.3 % (32.0-36.0); MCV 83 fL (80-95); MPV 10.3 fL (8.0-11.0); Platelet Count 144 10^3/uL (130-400); RBC 5.54 10^6/uL (4.36-5.78); RDW 11.9 % (11.8-14.1); RDW-SD 36.4 fL; WBC 5.04 10^3/uL (4.4-10.8)
[2024-12-19 21:10] LABS: ESR 3 mm/hr (0-20)
[2024-12-19 21:23] LABS: ALT 40 U/L (16-63); AST 30 U/L (15-37); Albumin 3.7 g/dL (3.4-5.0); Alkaline Phosphatase 92 U/L (46-116); Anion Gap 5.4 mmol/L (3-11); BUN 10 mg/dL (7-18); Bilirubin, Total 0.7 mg/dL (0.2-1.0); C-Reactive Protein 1.91 mg/dL (<or=0.5); CO2 31.6 mmol/L (21.0-32.0); Calcium 8.8 mg/dL (8.5-10.1); Chloride 102 mmol/L (98-107); Estimated GFR 88.88 (mL/min/1.73m2); Glucose 107 mg/dL (74-106); Magnesium 2.0 mg/dL (1.8-2.4); Potassium 3.7 mmol/L (3.5-5.1); Sodium 139 mmol/L (136-145); Total Protein 7.1 g/dL (6.4-8.2)
[2024-12-19 21:32] LABS: Glucose Negative (Negative)
[2024-12-19 21:38] LABS: C & S Indicated? No; RBC 0-2 HPF (0-2); WBC Negative HPF (0-5)
--- NOTE | 2024-12-19 21:50 | W.ED.GENAD ---
Discharge Plan Disposition Patient Disposition: Home Condition: Stable Discharge Details Clinical Impression: Headache, Polyarthralgia Primary Care Provider: Lucia Jarrell ED Provider: Magdalena Howard Home Meds and New Rx's Prescriptions: New orphenadrine citrate 100 mg tablet extended release 100 mg PO BID Qty: 20 0RF prochlorperazine maleate [Compazine] 10 mg tablet 10 mg PO Q8H PRNQty: 10 0RF Continued methylprednisolone 8 mg tablet Patient Comments: TAKE 1 & 1/2 TABLETS BY MOUTH ONCE DAILY X 7 DAYS, THEN 1 TABLET DAILY X 7 DAYS, THEN 0.5 TABLET DAILY X 7 DAYS tramadol 50 mg tablet 50 mg PO DAILY PRN (Reason: pain) Qty: 10 0RF omeprazole 20 MG tablet,delayed release (DR/EC) 20 mg PO DAILY colchicine 0.6 mg tablet 0.6 mg PO DAILY hydroxychloroquine 200 mg tablet 400 mg PO DAILY Discontinued methotrexate sodium 2.5 mg tablet Patient Comments: TAKE 6 TABLETS BY MOUTH ONCE WEEKLY Discharge Instructions Instructions: Headache, Adult ED Additional Instructions: Take the Compazine as needed for headache and nausea May take the orphenadrine as needed for musculoskeletal pain, this may make you tired, use caution while taking this medication while driving Your CT and diagnostic blood work does not show significant acute abnormality Please follow-up with your interventional sale consultant as planned in the long COVID clinic this week. please return earlier should you have new or worsening Referrals: Lucia Jarrell [Primary Care Provider, Medicine] Discharge Data Discharge Date/Time-TO BE ENTERED AT DEPARTURE: 12/19/24 22:47 HPI General Date/Time Provider Initiated Documentation: 12/19/24 20:08. HPI Narrative: 54-year-old male with nausea and head pressure since Friday. No stiff neck, fever, tick bites, or risk of carbon monoxide exposure. Alert and oriented x4, no acute distress. Inflammatory markers, CBC, and chemistry normal. No meningismus. Pupils equal, round, reactive to light and accommodation. Cranial nerves II-XII intact. Steady gait, no rashes or lesions. No abdominal or flank tenderness. Neurological exam benign. History of COVID-19 two years ago, possible long COVID with generalized joint pains. Concerned about worsening head pain. Related Data Home Medications ?Medication ?Instructions ?Recorded ?Confirmed omeprazole 20 mg tablet,delayed 20 mg PO DAILY 12/14/16 12/19/24 release methylprednisolone 8 mg tablet mg 06/11/23 tramadol 50 mg tablet 50 mg PO DAILY PRN pain #10 tabs 06/11/23 12/19/24 colchicine 0.6 mg tablet 0.6 mg PO DAILY 12/19/24 12/19/24 hydroxychloroquine 200 mg tablet 400 mg PO DAILY 12/19/24 12/19/24 orphenadrine citrate 100 mg 100 mg PO BID #20 tabs 12/19/24 tablet,extended release prochlorperazine maleate 10 mg 10 mg PO Q8H PRN #10 tabs 12/19/24 tablet (Compazine) Previous Rx's ?Medication ?Instructions ?Recorded tramadol 50 mg tablet 50 mg PO DAILY PRN pain #10 tabs 06/11/23 orphenadrine citrate 100 mg 100 mg PO BID #20 tabs 12/19/24 tablet,extended release prochlorperazine maleate 10 mg 10 mg PO Q8H PRN #10 tabs 12/19/24 tablet (Compazine) Allergies Allergy/AdvReac Type Severity Reaction Status Date / Time onion Allergy Severe Anaphylaxsi Unverified 12/19/24 20:04 s gluten AdvReac Unknown joint pain Unverified 12/19/24 20:04 General Stated Complaint: GenMedical MARIPOSA: 3 Exam Narrative Exam Narrative: General Appearance: Alert and oriented x4, no acute distress. Vital signs: Within normal limits. HEENT: Pupils equal, round, reactive to light and accommodation. Respiratory: Within normal limits. Gastrointestinal: No abdominal or flank tenderness. Back, Musculoskeletal: Steady gait. Skin: No rashes or lesions. Neurological: Cranial nerves II-XII intact. Neurological exam benign. Course Vital Signs Vital signs: Vital Signs Temperature 37.2 C 12/19/24 19:56 Pulse 79 12/19/24 19:56 Respiratory Rate 18 12/19/24 19:56 Blood Pressure 137/92 H 12/19/24 19:56 Pulse Oximetry 92 12/19/24 19:56 Temperature 37.2 C 12/19/24 21:06 Temperature Source Oral 12/19/24 21:06 Pulse 68 12/19/24 21:40 Pulse 68 12/19/24 21:40 Respiratory Rate 19 12/19/24 21:40 Respiratory Effort Normal 12/19/24 21:06 Respiratory Depth Normal 12/19/24 21:06 Respiratory Pattern Normal 12/19/24 21:06 Blood Pressure 137/92 H 12/19/24 21:06 Blood Pressure Position Sitting 12/19/24 21:06 Pulse Oximetry 95 12/19/24 21:40 Oxygen Delivery Method Room Air 12/19/24 21:06 Oxygen Flow Rate 0 12/19/24 21:06 Pain Level 6 12/19/24 21:06 Lab/Test Results Lab/Test Results: Laboratory Tests Range/Units 12/19/24 12/19/24 21:00 21:26 WBC (4.4-10.8) 10^3/uL 5.04 RBC (4.36-5.78) 10^6/uL 5.54 Hgb (13.5-17.5) g/dL 15.8 Hct (40.0-50.0) % 46.0 MCV (80-95) fL 83 MCH (27.0-33.0) pg 28.5 MCHC (32.0-36.0) % 34.3 RDW (11.8-14.1) % 11.9 Plt Count (130-400) 10^3/uL 144 MPV (8.0-11.0) fL 10.3 Immature Gran % % 0.2 Neutrophils % % 76.4 Lymphocytes % % 11.1 Monocytes % % 11.5 Eosinophils % % 0.4 Basophils % % 0.4 Nucleated RBC % (0.0-0.3) % 0.0 Absolute Neutrophils (1.2-6.7) 10^3/uL 3.85 Absolute Lymphocytes (1.2-3.4) 10^3/uL 0.56 L Absolute Monocytes (0.1-0.8) 10^3/uL 0.58 Absolute Eosinophils (0.0-0.7) 10^3/uL 0.02 Absolute Basophils (0.0-0.2) 10^3/uL 0.02 ESR (0-20) mm/hr 3 Sodium (136-145) mmol/L 139 Potassium (3.5-5.1) mmol/L 3.7 Chloride (98-107) mmol/L 102 Carbon Dioxide (21.0-32.0) mmol/L 31.6 Anion Gap (3-11) mmol/L 5.4 BUN (7-18) mg/dL 10 Creatinine (0.70-1.30) mg/dL 1.0 Est GFR (CKD-EPI 2020) (mL/min/1.73m2) 88.88 Glucose (74-106) mg/dL 107 H Calcium (8.5-10.1) mg/dL 8.8 Magnesium (1.8-2.4) mg/dL 2.0 Total Bilirubin (0.2-1.0) mg/dL 0.7 AST (15-37) U/L 30 ALT (16-63) U/L 40 Alkaline Phosphatase (46-116) U/L 92 C-Reactive Protein (<or=0.5) mg/dL 1.91 H Total Protein (6.4-8.2) g/dL 7.1 Albumin (3.4-5.0) g/dL 3.7 Urine Color (Yellow) Yellow Urine Clarity (Clear) Clear Urine pH (5-8) 7.0 Ur Specific Asher (1.005-1.025) 1.015 Urine Protein (Neg-Trace) mg/dL Negative Urine Ketones (Negative) mg/dL Negative Urine Blood (Negative) Trace-intact H Urine Nitrite (Negative) Negative Urine Bilirubin (Negative) Negative Urine Urobilinogen (Up to 0.2) mg/dL 0.2 Ur Leukocyte Esterase (Negative) Negative Urine RBC (0-2) HPF 0-2 Urine WBC (0-5) HPF Negative Ur Epithelial Cells (Negative) HPF Negative Urine Crystals (Negative) HPF Negative Urine Bacteria (Negative) HPF Negative Urine Casts (Negative) LPF Negative Urine Mucus (Negative) Negative Urine Other (Negative) Negative Ur Culture Indicated? No Urine Glucose (Negative) mg/dL Negative Medical Decision Making CBC, and chemistry normal. Inflammatory markers, CBC, and chemistry normal. initial Assessment: 54-year-old male with nausea and worsening head pressure since Friday. History of possible long COVID and generalized joint pains. ED Course: - Administered migraine cocktail (Compazine, fluids, Decadron) with significant improvement. - Inflammatory markers, CBC, and chemistry are reassuring. - Neurological exam is benign. Final Assessment: Patient presented with nausea and worsening head pressure. Administered migraine cocktail with significant improvement. Low suspicion for meningitis or subarachnoid hemorrhage. Clinical Impression: - Headache - Nausea - Long COVID-19 Disposition: - Discharge: Home, significant improvement, low suspicion for serious conditions. - Follow-Up: Primary care physician, continue prescribed medications, long COVID clinic in rheumatology. MDM Components Evaluation: - Number of Differential Diagnoses or Management Options: Low suspicion for meningitis or subarachnoid hemorrhage. - Amount and Complexity of Data Reviewed: Inflammatory markers, CBC, chemistry. - Risk of Complication and Morbidity or Mortality: Low suspicion for serious conditions based on significant improvement with typical migraine meds. PFSH All Active Problems (Updated 12/19/24 @ 22:34 by ALEXIS Arroyo) Polyarthralgia (Acute) Headache (Acute) Chest pain (Acute) Cough (Acute) Social History Smoking/Tobacco Use Status: Never Smoking risk assessment performed?: Yes Alcohol Intake: never Drug use: Never Substance use type: does not use Do you feel safe at home: Yes Do you feel safe in your relationship?: Yes
--- NOTE | 2024-12-19 21:55 | DI.VRAD_ITS ---
PROCEDURE INFORMATION: Exam: CT Head Without Contrast Exam date and time: 12/19/2024 9:05 PM Age: 54 years old Clinical indication: Pain; Headache not specified; Additional info: PT sts h/o pituitary issues and brain swelling, no h/o surg TECHNIQUE: Imaging protocol: Computed tomography of the head without contrast. COMPARISON: No relevant prior studies available. FINDINGS: Brain: No acute intracranial hemorrhage, mass-effect, midline shift, or extra-axial collection is seen. The shah white matter differentiation appears preserved. Within the limits of the exam, no pituitary mass is demonstrated. Cerebral ventricles: The ventricular system and basilar cisterns appear appropriate in size and configuration. Paranasal sinuses: The visualized paranasal sinuses appear well-aerated. Mastoid air cells: The mastoid air cells appear well-aerated. Auditory system: The middle ear cavities appear clear. Orbital cavities: The globes and intraorbital structures appear grossly intact. Bones: The bony calvarium appears intact. No depressed skull fracture is seen. Soft tissues: There appears to be a small left parietal scalp contusion. Is there a history of recent trauma? IMPRESSION: No acute intracranial abnormality seen. Dictated and Authenticated by: Alton Callahan MD. Orderin Lee Nichols MD
[2024-12-19] MEDS: Orphenadrine 60 MG/2 ML VIAL IVP (22:46)
[2024-12-21 10:40] LABS: Lyme Ab w Rflx to Lyme Confirm Negative (Negative)
[2024-12-23 13:29] LABS: B. miyamotoi PCR Negative (Negative); Babesia divergens/MO-1 Negative (Negative); Ehrlichia muris eauclairensis Negative (Negative)
== END 2024-12-19 22:47 | disposition home or self-care (01) ==
PROVIDERS: Emergency Provider Physician Assistant; PCP General Practice
DX: R51.9 Headache, unspecified (principal); M25.59 Pain in other specified joint
CPT/HCPCS: 99285; 99284; 96375; 80053; 85652; 87798; 96365; J2360; 70450; 81003; 81015; 83735; 85025; 86140; 86618; J0131; J0780; J1100